=== PATIENT | female | born 1960 | race Caucasian/White ===

== ENCOUNTER 2017-09-27 13:09 | Outpatient (CLI) | payer BC ==
--- OUTSIDE RECORDS SUMMARY | 2017-09-27 15:14 | XMS | Clinical Summary ---
:1960 Author Organization [facility] Address [address] [place] [address] Phone Care Team Providers Name Role Phone , Primary Care Provider Unavailable Allergies Active Allergy Reactions Severity Noted Date Comments Docetaxel Anaphylaxis High 06/05/2015 Hydromorphone (Bulk) Itching Medium 06/07/2015 agitation Levofloxacin Other (See Comments) Medium 06/07/2015 Muscle and joint pains Morphine Itching,Other (See 06/05/2015 Agitation Comments) Nsaids (Non-Steroidal Other (See Comments) 06/05/2015 Decreased kidney Anti-Inflammatory Drug) function. Current Medications Prescription Sig. Disp. Refills Start Date End Date Status CALCIUM Take 1-2 Active CARBONATE/VITAMIN D3 tablets by (CALCIUM+D ORAL) mouth daily. BIFIDOBACTERIUM INFANTIS Take 1 capsule Active (ALIGN ORAL) by mouth daily. polyethylene glycol Take 17 g by Active (GLYCOLAX) 17 gram mouth daily as packet needed. tamsulosin (FLOMAX) 0.4 Take 1 capsule 30 capsule 0 06/09/2015 Active mg Cp24 24 hr capsule (0.4 mg total) by mouth daily. 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 Social History Tobacco Use Types Packs/Day Years Used Date Former Smoker Quit: 04/15/2014 Smokeless Tobacco: Never Used Alcohol Use Drinks/Week oz/Week Comments No Sex Assigned at Date Recorded Not on file Last Filed Vital Signs Vital Sign Reading Time Taken Blood Pressure 130/81 06/09/2015 11:23 AM CDT Pulse 79 06/09/2015 11:23 AM CDT Temperature 35.6 C (96.1 F) 06/09/2015 11:23 AM CDT Respiratory Rate 18 06/09/2015 11:23 AM CDT Oxygen Saturation 98% 06/09/2015 11:23 AM CDT Inhaled Oxygen Concentration - - Weight 80.7 kg (178 lb) 06/07/2015 11:25 AM CDT Height 170.2 cm (5' 7") 06/07/2015 11:25 AM CDT Body Mass Index 27.88 06/07/2015 11:25 AM CDT Plan of Treatment Not on file Results Not on filefrom Last 3 Months
--- NOTE | 2017-09-27 16:20 | ULT ---
RENAL ULTRASOUND: History: Renal disease. Left nephrectomy. Comparison: None. Technique: Sagittal and transverse imaging of the right kidney is performed. FINDINGS: No hydronephrosis. Right kidney measures 6.2 x 10.2 x 5.5 cm. Urinary bladder is unremarkable. Pre void volume is 163 cu/cm. IMPRESSION: No evidence of right sided hydronephrosis. POS: [facility]
== END 2017-09-27 13:10 | disposition home or self-care (01) ==
LOC: SCSULT 13:09
PROVIDERS: ATTEND Urology
DX: N28.9 Disorder of kidney and ureter, unspecified (principal); M79.1 Myalgia
CPT/HCPCS: 76775

== ENCOUNTER 2018-05-26 11:23 | Outpatient (CLI) | payer BC | END 2018-05-26 11:24 | disposition home or self-care (01) | LOC: BICMAMMO 11:23 | PROVIDERS: ATTEND Obstetrics & Gynecology | DX: Z12.31 Encounter for screening mammogram for malignant neoplasm of breast (principal); Z85.3 Personal history of malignant neoplasm of breast; Z80.3 Family history of malignant neoplasm of breast | CPT/HCPCS: 77063; 77067 ==

== ENCOUNTER 2018-05-31 14:57 | Outpatient (CLI) | payer BC | END 2018-05-31 14:58 | disposition home or self-care (01) | LOC: BICMAMMO 14:57 | PROVIDERS: ATTEND Obstetrics & Gynecology | DX: Z13.820 Encounter for screening for osteoporosis (principal); M85.88 Other specified disorders of bone density and structure, other site | CPT/HCPCS: 77080 ==

== ENCOUNTER 2018-09-19 11:21 | Emergency (ER) | payer BC ==
[2018-09-19 12:03] LABS: #Basophils 0.1 thou/uL (0.0-0.2); #Lymphocytes 1.1 thou/uL (1.20-3.40); #Monocytes 0.9 thou/uL (0.11-0.59); #Neutrophils 9.7 thou/uL (1.40-6.50); %Basophils 0.8 % (0.0-1.0); %Eosinophils 0.2 % (0.0-10.0); %Lymphocytes 9.3 % (21.0-51.0); %Monocytes 7.7 % (0.0-10.0); Hemoglobin 12.6 g/dL (12.0-16.0); Mean Corpuscular HGB CONC 32.7 g/dL (32.0-36.0); Mean Corpuscular Hemoglobin 29.9 pg (27.0-31.0); Mean Corpuscular Volume 91.5 fL (78.0-98.0); Mean Platelet Volume 6.3 fL (7.4-10.4); Platelet Count 162 thou/uL (130-400); RBC Distribution Width 11.7 % (11.5-14.5); Red Blood Cell (RBC) Count 4.22 mill/uL (4.20-5.40); White Blood Cell (WBC) Count 11.8 thou/uL (4.8-10.8)
[2018-09-19 12:07] LABS: Lactic Acid 0.6 mmol/L (0.5-2.2)
[2018-09-19 12:12] LABS: ALT (SGPT) 15 U/L (8-55); AST (SGOT) 15 U/L (5-34); Albumin 4.5 g/dL (3.5-5.0); Alkaline Phosphatase 64 U/L (40-150); Anion Gap 14 mmol/L (10-20); BUN (Urea Nitrogen) 16 mg/dL (9.8-20.1); Bilirubin, Total 0.7 mg/dL (0.2-1.2); Calc. Creatinine Clearance 0 mL/min (70-130); Calcium 9.7 mg/dL (7.8-10.44); Carbon Dioxide 29 mmol/L (22-29); Chloride 102 mmol/L (98-107); Estimated GFR-MDRD 67; Glucose 98 mg/dL (70-105); Potassium 4.1 mmol/L (3.5-5.1); Protein, Total 7.5 g/dL (6.0-8.3); Sodium 141 mmol/L (136-145)
== END 2018-09-19 13:15 | disposition home or self-care (01) ==
LOC: SCSER 11:21
DX: J04.0 Acute laryngitis (principal); J02.9 Acute pharyngitis, unspecified; Z79.899 Other long term (current) drug therapy
CPT/HCPCS: 36415; 80053; 83605; 85025; 87040; 87081; 87430; 87804; 99284